=== PATIENT | female | born 1990 | race Caucasian/White ===

== ENCOUNTER → 2019-11-05 | Outpatient (CLI) | payer SELFPAY ==
[~2019-11-05] MED LIST: CIPR-225 PO; METR500T PO; ONDA4TAB8 PO; TRAM-42 PO
--- NOTE | 2019-11-05 09:49 | Diagnostic Imaging Report ---
INDICATION: Periumbilical abdominal pain. PROCEDURE: Ultrasound abdomen complete. TECHNIQUE: Multiple Real-time grayscale images were obtained of the abdomen in various projections. FINDINGS: The liver is normal in size at 15.5 cm. Somewhat linear regions of increased echogenicity within the right lobe of the liver are seen. These likely correspond to the areas of low density noted on the CT study dating back to 2015. This remains indeterminate. These could represent areas of geographic fatty infiltration due to the increased echogenicity. The portal vein is patent and shows normal direction of flow. The gallbladder is without stones or sludge. No wall thickening or biliary ductal dilatation is seen. The pancreas is unremarkable. The spleen is normal size at 8.5 cm. The aorta is nonaneurysmal. The IVC is patent. The kidneys are unremarkable. No calculus or hydronephrosis is detected. There is no ascites. IMPRESSION: 1. No evidence of cholelithiasis or acute cholecystitis. 2. Linear regions of increased echogenicity in the right lobe of the liver are similar to the CT study from November 2015. These could represent areas of geographic fatty infiltration. An MRI of the abdomen would be useful for better characterization. The study is otherwise unremarkable. Dictated by: Dictated on workstation # [id number]
== END ==
LOC: RAD 07:35
PROVIDERS: ATTEND Nurse Practitioner Family
DX: K76.89 Other specified diseases of liver (principal); R10.33 Periumbilical pain
CPT/HCPCS: 76700

== ENCOUNTER → 2022-01-20 | Outpatient (CLI) | payer MEDICAID ==
--- NOTE | 2022-01-20 16:07 | Diagnostic Imaging Report ---
CLINICAL HISTORY: Bilateral hand pain. No known injury. COMPARISON: None. TECHNIQUE: 6 views of the bilateral hands. FINDINGS: There is no acute fracture or dislocation of the bilateral hands. Alignment is anatomic. The imaged joint spaces are preserved. No focal osseous lesions. IMPRESSION: 1. No acute fracture or dislocation of the bilateral hands. Dictated by: Dictated on workstation # [id number]
== END ==
LOC: ORTHO 08:42
PROVIDERS: ATTEND Orthopaedic Surgery
DX: M79.641 Pain in right hand (principal); M79.642 Pain in left hand
CPT/HCPCS: 73130; G0463; 99203

== ENCOUNTER 2022-01-25 05:34 | Outpatient (CLI) | payer MEDICAID ==
[~2022-01-25] VITALS: Ht 162.6 cm; Wt 94.1 kg
[2022-01-27] MEDS ORDERED: SERT-413 PO ×2 (13:55)
[2022-01-27] MEDS ORDERED: DICL75TA2 PO ×2 (13:55)
== END 2022-01-27 13:59 | disposition home or self-care (01) ==
LOC: PREOP 05:34
PROVIDERS: ATTEND Orthopaedic Surgery
DX: Z01.818 Encounter for other preprocedural examination (principal)

== ENCOUNTER 2022-02-01 08:12 | Day surgery (SDC) | payer MEDICAID ==
[~2022-02-01] VITALS: Ht 162.6 cm; Wt 94.1 kg
[2022-02-01] VITALS (8 sets, daily range): BP systolic 122–149; BP diastolic 73–89
[~2022-02-01 08:12] MED LIST changes: +DICL75TA2 PO; +SERT-413 PO
[2022-02-01] MEDS ORDERED: LIDOCAINE PF 0.5% 50 ML (XYLOCAINE) VIAL ONE (08:29)
[2022-02-01] MEDS ORDERED: MIDAZOLAM 2 MG/2 ML (VERSED) VIAL ONE (08:29)
[2022-02-01] MEDS ORDERED: PROPOFOL INJECTION 50 ML IV ONE (08:29)
[2022-02-01] MEDS ORDERED: fentaNYL INJ 100 MCG/2 ML AMP ONE (08:29)
[2022-02-01] MEDS ORDERED: BUPIVACAINE 0.5% 30 ML (SENSORCAINE) VIAL ONE (08:39)
[2022-02-01] MEDS ORDERED: NEOSPORIN + PAIN RELIEF CREAM 15 GM ONE (08:39)
[2022-02-01] MEDS ORDERED: LACTATED RINGERS 1,000 ML IV PRN (09:00)
[2022-02-01] MEDS ORDERED: ceFAZolin INJECTION 2,000 MG in NS (IVPB) 50 ML IV ONE (09:00)
[2022-02-01] MEDS ORDERED: NEO/POLY/BAC (NEOSPORIN) OINT 15 GM TUBE TOP ONE ×2 (10:28→11:02)
[2022-02-01] MEDS ORDERED: BUPIVACAINE 0.5% 30 ML (SENSORCAINE) VIAL INJ ONE (10:30)
[2022-02-01] MEDS ORDERED: NEO/POLY/BAC (NEOSPORIN) OINT 15 GM TUBE ONE (10:34)
--- NOTE | 2022-02-01 10:48 | Anesthesia-General Post-Op ---
MAC Patient Condition Mental Status/LOC: Same as Preop Cardiovascular: Satisfactory Nausea/Vomiting: Absent Respiratory: Satisfactory Pain: Controlled Complications: Absent Post Op Complications Complications None Follow Up Care/Instructions Patient Instructions None needed. Anesthesiology Discharge Order Discharge Order Patient is doing well, no complaints, stable vital signs, no apparent adverse anesthesia problems. No complications reported per nursing. KAITLIN SOLO CRNA Feb 01, 2022 10:48
--- NOTE | 2022-02-01 10:48 | Progress Note-Pre Operative ---
Pre-Operative Progress Note Date of Available H&P: Jan 20, 2022 Date H&P Reviewed: Feb 01, 2022 Time H&P Reviewed: 09:45 History & Physical: H&P Reviewed, Patient Examed, No changes noted Pre-Operative Diagnosis: Right Carpal Tunnel Syndrome AQUILINO MORE MD Feb 01, 2022 10:48
--- NOTE | 2022-02-01 10:49 | Operative Report - Ortho ---
Operative Report Surgeon (s)/Stem Roller Or Crusher Operator (s) Surgeon AQUILINO MORE MD Stem Roller Or Crusher Operator n/a Pre-Operative Diagnosis Right Carpal Tunnel Syndrome Post-Operative Diagnosis same Operative Report Date of Procedure: Feb 01, 2022 Name of Procedure Performed: Right Carpal Tunnel Release Description & Findings After obtaining informed consent and marking the patient in the preoperative holding area, the patient was administered IV antibiotics. The patient was taken to the operating room and maya block anesthesia was induced. The right upper extremity was prepped and draped in the usual sterile fashion. Surgical timeout was taken. Incision was made just ulnar to the thenar crease. Blunt dissection was carried down to the longitudinal fibers of the palmar fascia; these were divided in line revealing the transverse carpal ligament. Beginning distally and working proximally, carpal tunnel release was performed. Nerve protector was placed and release was completed back to the level of the forearm fascia. Probe was inserted and release was palpably complete. Tourniquet was dropped and hemostasis was achieved. Wound was closed with 4-0 nylon. Wound was dressed with antibiotic ointment, xeroform, 4x4s, sujit, ABD for soft splint, cast padding, and ZULEYMA wrap. Patient tolerated the procedure well and was stable to the recovery room. Anesthesia Type Maya Block Estimated Blood Loss minimal Specimen(s) collected/removed None AQUILINO MORE MD Feb 01, 2022 10:49
[2022-02-01] MEDS ORDERED: OXC5T PO ×2 (10:51)
[2022-02-01] MEDS ORDERED: ONDANSETRON 4 MG/2 ML (SDV) Z0FRAN IVP PRN (11:00)
[2022-02-01] MEDS ORDERED: HYDROmorphone 2 MG/ML VIAL (DILAUDID) IV ONE (11:00)
== END 2022-02-01 12:26 | disposition home or self-care (01) ==
LOC: SDC 08:12
PROVIDERS: ATTEND Orthopaedic Surgery
DX: G56.03 Carpal tunnel syndrome, bilateral upper limbs (principal); E66.9 Obesity, unspecified; Z68.35 Body mass index [BMI] 35.0-35.9, adult
CPT/HCPCS: 84703; 87081

== ENCOUNTER → 2022-02-16 | Outpatient (CLI) | payer MEDICAID ==
[~2022-02-16] MED LIST changes: +OXC5T PO
== END ==
LOC: ORTHO 09:05
PROVIDERS: ATTEND Orthopaedic Surgery
DX: Z47.89 Encounter for other orthopedic aftercare (principal)

== ENCOUNTER → 2022-03-18 | Outpatient (CLI) | payer MEDICAID | LOC: ORTHO 10:09 | PROVIDERS: ATTEND Orthopaedic Surgery | DX: G56.02 Carpal tunnel syndrome, left upper limb (principal) ==

== ENCOUNTER → 2022-06-10 | Outpatient (CLI) | payer MEDICAID | LOC: ORTHO 08:25 | PROVIDERS: ATTEND Orthopaedic Surgery | DX: G56.02 Carpal tunnel syndrome, left upper limb (principal) | CPT/HCPCS: 99213 ==

== ENCOUNTER 2022-06-11 08:30 | Outpatient (CLI) | payer MEDICAID ==
[~2022-06-11] VITALS: Ht 160 cm; Wt 95.5 kg
== END 2022-06-11 17:20 | disposition home or self-care (01) ==
LOC: PREOP 08:30
PROVIDERS: ATTEND Orthopaedic Surgery
DX: Z01.818 Encounter for other preprocedural examination (principal)

== ENCOUNTER 2022-06-28 08:57 | Day surgery (SDC) | payer MEDICAID ==
[2022-06-28] VITALS (8 sets, daily range): BP systolic 91–120; BP diastolic 55–79
[~2022-06-28] VITALS: Ht 160 cm; Wt 95.5 kg
[2022-06-28] MEDS ORDERED: LACTATED RINGERS 1,000 ML IV PRN (09:15)
[2022-06-28] MEDS ORDERED: ceFAZolin INJECTION 2,000 MG in NS (IVPB) 50 ML IV ONE (09:15)
[2022-06-28] MEDS ORDERED: CATHETER FLUSH 10 ML SYR IVP PRN (09:30)
[2022-06-28] MEDS ORDERED: NEO/POLY/BAC (NEOSPORIN) OINT 15 GM TUBE ONE (09:35)
[2022-06-28] MEDS ORDERED: BUPIVACAINE 0.5% 30 ML (SENSORCAINE) VIAL ONE (09:35)
--- NOTE | 2022-06-28 10:53 | Progress Note-Pre Operative ---
Pre-Operative Progress Note Date of Available H&P: Jun 10, 2022 Date H&P Reviewed: Jun 28, 2022 Time H&P Reviewed: 10:45 History & Physical: H&P Reviewed, Patient Examed, Changes noted below Changes from last HP Date of surgery changed to 06/28/22. Pre-Operative Diagnosis: Left Carpal Tunnel Syndrome AQUILINO MORE MD Jun 28, 2022 10:53
[2022-06-28] MEDS ORDERED: MIDAZOLAM 2 MG/2 ML (VERSED) VIAL ONE (10:56)
[2022-06-28] MEDS ORDERED: PROPOFOL INJECTION 50 ML IV ONE (10:57)
[2022-06-28] MEDS ORDERED: LIDOCAINE 1% INJ 20 ML VIAL ONE (11:06)
[2022-06-28] MEDS ORDERED: LIDOCAINE/EPI 1%-1:100,000 (XYLOCAINE) 20ML ONE (11:07)
[2022-06-28] MEDS ORDERED: fentaNYL INJ 100 MCG/2 ML AMP ONE (11:13)
[2022-06-28] MEDS ORDERED: NEO/POLY/BAC (NEOSPORIN) OINT 15 GM TUBE TOP ONE (11:32)
[2022-06-28] MEDS ORDERED: BUPIVACAINE 0.5% 30 ML (SENSORCAINE) VIAL INJ ONE (11:33)
[2022-06-28] MEDS ORDERED: LIDOCAINE 1% INJ 20 ML VIAL INJ ONE (11:34)
--- NOTE | 2022-06-28 11:37 | Operative Report - Ortho ---
Operative Report Surgeon (s)/Director Digital Strategy (s) Surgeon AQUILINO MORE MD Director Digital Strategy n/a Pre-Operative Diagnosis Left Carpal Tunnel Syndrome Post-Operative Diagnosis same Operative Report Date of Procedure: Jun 28, 2022 Name of Procedure Performed: Left Carpal Tunnel Release Description & Findings After obtaining informed consent and marking the patient in the preoperative holding area, the patient was administered IV antibiotics. The patient was t aken to the operating room and sedation was induced. Local anesthetic was placed. The left upper extremity was prepped and draped in the usual sterile fashion. Surgical timeout was taken. Incision was made just ulnar to the thenar crease. Blunt dissection was carried down to the longitudinal fibers of the palmar fascia; these were divided in line revealing the transverse carpal ligament. Beginning distally and working proximally, carpal tunnel release was performed. Nerve protector was placed and release was completed back to the level of the forearm fascia. Probe was inserted and release was palpably complete. Tourniquet was dropped and hemostasis was achieved. Wound was closed with 4-0 nylon. Wound was dressed with antibiotic ointment, xeroform, 4x4s, sujit, ABD for soft splint, cast padding, and ZULEYMA wrap. Patient tolerated the procedure well and was stable to the recovery room. Anesthesia Type MAC plus local Estimated Blood Loss minimal Specimen(s) collected/removed None AQUILINO MORE MD Jun 28, 2022 11:37
[2022-06-28] MEDS ORDERED: OXC5T PO (11:39)
[2022-06-28] MEDS ORDERED: LIDOCAINE/EPI 1%-1:100,000 (XYLOCAINE) 20ML INJ ONE (11:43)
--- NOTE | 2022-06-28 11:47 | Anesthesia-General Post-Op ---
MAC Patient Condition Mental Status/LOC: Same as Preop Cardiovascular: Satisfactory Nausea/Vomiting: Absent Respiratory: Satisfactory Pain: Controlled Complications: Absent Post Op Complications Complications None Follow Up Care/Instructions Patient Instructions None needed. Anesthesiology Discharge Order Discharge Order Patient is doing well, no complaints, stable vital signs, no apparent adverse anesthesia problems. No complications reported per nursing. JACLYN ALATORRE CRNA Jun 28, 2022 11:47
[2022-06-28] MEDS ORDERED: KETOROLAC 30 MG/ML VIAL ONE (11:59)
[2022-06-28] MEDS ORDERED: ONDANSETRON 4 MG/2 ML (SDV) Z0FRAN IVP PRN (12:00)
[2022-06-28] MEDS ORDERED: KETOROLAC 30 MG/ML VIAL IVP ONE (12:00)
[2022-06-28] MEDS ORDERED: fentaNYL INJ 100 MCG/2 ML AMP IVP ONE (12:00)
== END 2022-06-28 13:00 | disposition home or self-care (01) ==
LOC: SDC 08:57
PROVIDERS: ATTEND Orthopaedic Surgery
DX: G56.02 Carpal tunnel syndrome, left upper limb (principal)
CPT/HCPCS: 84703; 87081

== ENCOUNTER 2022-07-11 11:35 | Emergency (ER) | payer MEDICAID ==
--- NOTE | 2022-07-11 12:56 | ED Upper Extremity ---
General Chief Complaint: Post OP Complications/Pain Stated Complaint: INFECTION IN LEFT HAND/RECENT SURGERY Nursing Triage Note: PT AMB TO [facility] 2 WITH SPOUSE WITH C/O L HAND SURGICAL SITE POSSIBLY BEING INFECTED. PT HAD CARPEL TUNNEL SURG ON 06/[address] COLLINS. SITE APPEARS RED AND SWOLLEN X A FEW DAYS (RICHARD THOMSON) History of Present Illness Date Seen by Provider: Jul 11, 2022 Time Seen by Provider: 12:30 Initial Comments 32-year-old female presents for swelling at the site of her carpal tunnel surgery on her left wrist. Patient had surgery on June 28, [address]. She has been doing well and completing her wound care. She is applying triple antibiotic ointment and using a Band-Aid over the site. She has noticed no drainage from the site. Yesterday she does report bumping it on 2 different occasions and having increased swelling and pain. Today she noted some erythema at the incision site, no fevers and last Tylenol dose was last evening. She has follow up with Dr. Omalley on 07/14/22. Sutures are intact. Onset: yesterday Pain/Injury Location: left wrist (RICHARD THOMSON) Allergies and Home Medications Allergies Coded Allergies: No Known Drug Allergies (Unverified , 06/11/22) Patient Home Medication List Home Medication List Reviewed: Yes (RICHARD THOMSON) Cephalexin (Cephalexin) 500 Mg Tablet, 500 MG PO TID Prescribed by: RICHARD THOMSON on 07/11/22 1301 Diclofenac Sodium (Diclofenac Sodium) 75 Mg Tablet.dr, 75 MG PO DAILY, (Reported) Entered as Reported by: MARYELLEN BIGGS on 01/27/22 1355 Oxycodone Hcl (Oxyir Tablet) 5 Mg Tab, 5 MG PO Q6H PRN for SEVERE PAIN Prescribed by: AQUILINO COLLINS MD on 06/28/22 1140 Sertraline HCl (Sertraline HCl) 50 Mg Tablet, 50 MG PO DAILY, (Reported) Entered as Reported by: MARYELLEN BIGGS on 01/27/22 1355 Review of Systems Constitutional: no symptoms reported, see HPI Musculoskeletal: see HPI, other (left wrist ) Skin: see HPI, other (incision left wrist, erythema and warmth) (RICHARD THOMSON) All Other Systems Reviewed Negative Unless Noted: Yes (RICHARD THOMSON) Past Amkwrpc-Vbcwzl-Eusggd Hx Patient Social History Tobacco Use?: No Use of E-Cig and/or Vaping dev: No Substance use?: No Alcohol Use?: Yes Alcohol Frequency: Rarely Pt feels they are or have been: No (RICHARD THOMSONP) Immunizations Up To Date Tetanus Booster (TDap): Less than 5yrs (ALIXRICHARD) Seasonal Allergies Seasonal Allergies: Yes (ALIXRICHARD) Past Medical History Surgery/Hospitalization HX: CARPEL TUNNEL X2, TUBAL Surgeries: Yes Orthopedic, Tubal Ligation Respiratory: No Currently Using CPAP: No Currently Using BIPAP: No Cardiac: No Neurological: No Headaches /Migraines Last Menstrual Period: Jun 24, 2022 Reproductive Disorders: No 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 oz. 81.862946ty; 37.30 BMI Method:Stated General Appearance: WD/WN, no apparent distress Cardiovascular: normal peripheral pulses, regular rate, rhythm Respiratory: chest non-tender, lungs clear Wrist: Yes limited ROM (slight decrease, secondary to pain), Yes soft tissue tenderness (incision with sutures in place to left wrist. Mild erythema and warmth, no drainage or discharge. ) Hand: normal inspection, non-tender, Left Neurologic/Psychiatric: no motor/sensory deficits, alert, normal mood/affect, oriented x 3 Skin: normal color, warm/dry (RICHARD THOMSON MARIELA) Progress/Results/Core Measures Results/Orders Blood Pressure Mean: 87 Progress Progress Note : Time: 12:30 Progress Note patient assessed, will discuss with Dr. Collins. 1245 Dr. Dennis agreeable with plan to start Keflex, will see her in clinic 2-3 days. Discharge instructions and return precautions reviewed with the patient. She was agreeable with plan (RICHARD THOMSON) Departure Impression Primary Impression: Post op infection Qualified Codes: T81.41XA - Infection following a procedure, superficial incisional surgical site, initial encounter Additional Impressions: History of carpal tunnel surgery of left wrist History of carpal tunnel surgery of right wrist Disposition: HOME, SELF-CARE Condition: Improved Departure-Patient Inst. Decision time for Depature: 12:55 (RICHARD THOMSON) Referrals: CRISTOBAL SU APRN (PCP) Primary Care Physician AQUILINO COLLINS MD Patient Instructions: Wound Care (DC) Add. Discharge Instructions: Take antibiotics as prescribed. Call Dr. Collins's office tomorrow for a follow-up on Tuesday. Continue to alternate Tylenol 650 mg and ibuprofen 600 mg every 4 hours for pain or fever. Continue wound care. Return to the emergency department for fever, discharge or drainage from the wound site, or new urgent healthcare concerns. Scripts Cephalexin (Cephalexin) 500 Mg Tablet 500 MG PO TID, #15 TAB 0 Refills Prov: RICHARD THOMSON 07/11/22 ATTENDING PHYSICIAN NOTE: I was physically present as attending physician in the emergency department during the care of this patient, but I was not directly involved in the decision making or delivery of care for this patient. (WILLIAM JIMENEZ MD) Copy Copies To 1: AQUILINO COLLINS MD, AMY ARNP Jul 11, 2022 12:56 WILLIAM JIMENEZ MD Jul 13, 2022 07:08
[2022-07-11] MEDS ORDERED: CEPH500T PO (13:01)
[2022-07-11 13:08] VITALS: BP 119/71
== END 2022-07-11 13:12 | disposition home or self-care (01) ==
LOC: EDUNIT# 11:35 → ER 11:39
DX: T81.41XA Infection following a procedure, superficial incisional surgical site, initial encounter (principal); Z87.39 Personal history of other diseases of the musculoskeletal system and connective tissue
CPT/HCPCS: 99281

== ENCOUNTER → 2022-07-20 | Outpatient (CLI) | payer MEDICAID ==
[~2022-07-20] MED LIST changes: +CEPH500T PO
== END ==
LOC: ORTHO 15:00
PROVIDERS: ATTEND Orthopaedic Surgery
DX: Z47.89 Encounter for other orthopedic aftercare (principal)